=== PATIENT | male | born 1990 | race African-American/Black ===

== ENCOUNTER 2022-02-25 15:38 | Emergency (ER) | payer OTHER ==
[~2022-02-25] VITALS: Ht 185.4 cm; Wt 82.0 kg
[2022-02-25] MEDS ORDERED: SODIUM CHLORIDE 0.9% 1,000 ML IV ONE (16:00)
[2022-02-25 16:50] LABS: HEMATOCRIT. 40.2 % (42.0-52.0); HEMOGLOBIN. 13.6 g/dL (14.0-18.0); MEAN CORPUSCULAR HEMOGLOBIN 31.4 pg (28.0-32.0); MEAN CORPUSCULAR VOLUME 92.9 fL (80.0-94.0); MEAN PLATELET VOLUME 7.9 fl (7.4-10.4); PLATELET 170 x1000/uL (130-400); RED BLOOD CELL COUNT 4.32 mill/uL (4.7-6.1); RED CELL DISTRIBUTION WIDTH 14.2 % (11.6-14.6)
[2022-02-25 16:54] LABS: CHLORIDE 100 mEq/L (98-107)
[2022-02-25 21:45] LABS: PLATELET ESTIMATE NORMAL
[2022-02-26] MEDS ORDERED: LIDOCAINE HCL 1% 20ML VIAL (Pyxis) INJ INFIL ONE (02:00)
[2022-02-26] MEDS ORDERED: CEFTRIAXONE SODIUM 500 MG/VIAL IM ONE (02:00)
[2022-02-26] MEDS ORDERED: DOXY100C5 MT (03:12)
[2022-02-26] MEDS ORDERED: ACYC200C31 MT (03:12)
[2022-02-26 03:50] VITALS: BP 109/64
[2022-02-26 04:09] LABS: CLARITY URINE CLEAR (CLEAR); COLOR URINE DARK YELLOW (YELLOW); KETONES URINE TRACE (NEGATIVE); LEUKOCYTE ESTERASE URINE NEGATIVE (NEGATIVE); NITRITE URINE NEGATIVE (NEGATIVE); OCCULT BLOOD URINE 2+ (NEGATIVE); PH URINE 6.5 (4.5-8.0); PROTEIN URINE 2+ (NEGATIVE)
[2022-02-28 04:12] LABS: NEISSERIA GONORRHOEAE NAA Negative (Negative)
== END 2022-02-26 05:40 | disposition home or self-care (01) ==
LOC: ER 15:38
DX: A54.9 Gonococcal infection, unspecified (principal); A56.3 Chlamydial infection of anus and rectum; A51.49 Other secondary syphilitic conditions; B00.9 Herpesviral infection, unspecified; D64.9 Anemia, unspecified
CPT/HCPCS: 36415; 80053; 81003; 85025; 86592; 86593; 86780; 87491; 87591; 96372; 99283; J0696; J3490; J7030